=== PATIENT | male | born 1970 | race Caucasian/White ===

== ENCOUNTER 2021-07-27 20:04 | Emergency (ER) | payer MEDICAID ==
[~2021-07-27] VITALS: Ht 170.2 cm; Wt 100.0 kg
[2021-07-27 22:30] VITALS: BP 165/85
== END 2021-07-27 23:32 | disposition home or self-care (01) ==
LOC: EMS 20:08
DX: S80.01XA Contusion of right knee, initial encounter (principal); Y04.0XXA Assault by unarmed brawl or fight, initial encounter; Y93.89 Activity, other specified; Y92.89 Other specified places as the place of occurrence of the external cause; Y99.8 Other external cause status
CPT/HCPCS: 99283